=== PATIENT | male | born 2000 ===

== ENCOUNTER 2020-10-12 02:40 | Emergency (ER) | payer OTHER ==
[~2020-10-12] VITALS: Ht 193 cm; Wt 111.8 kg
[2020-10-12 02:48] VITALS: TEMP 98.2
[2020-10-12 03:50] VITALS: BP 128/78; PULSE 80
== END 2020-10-12 03:55 | disposition home or self-care (01) ==
LOC: COL.ER 02:40
DX: T16.1XXA Foreign body in right ear, initial encounter (principal); F17.290 Nicotine dependence, other tobacco product, uncomplicated